=== PATIENT | female | born 1985 | race American Indian/Alaskan Native ===

== ENCOUNTER 2017-01-18 12:43 | Emergency (ER) | payer MEDICAID ==
--- NOTE | 2017-01-18 13:48 | OBHP ---
Datetime: 01/18/2017 13:42 IP Adm Impression: , intrauterine ; Intact Membranes IP Admit Plan: Discharge home Admit Comment, IP Provider: chief complaint- wet underwear; ?lekaing of fluid HPI 31 y/o at 36.6 wga withc /o episoe of feeling the underwear wet this morning.States that she woke up and noticed that she felt wet in her underwear and on the labia Deneis leaking of fluid after that course- acre with dr belle PMH denies PSH denies OBGYN HX Social hx denies tobacco,alcohol or illicit drug use Exam see exam section A/P 31 y/o at 36.6 wga with c/o feeling underwear wet.Membranes clinically intact.no abnorma l vaginal discharge noted.no active labor -discharge home -follow up with dr belle next week Pelvic Type - PN: Adequate Extremities - PN: Normal Abdomen - PN: Normal Back - PN: Normal Lungs - PN: Normal Heart - PN: Normal Neurologic - PN: Normal General - PN: Normal Membranes, Provider: Intact Contraction Comments Provider: occ Comments, ACOG Physical Exam: speculume xam vulva no lesions vagina no discharge or fluid; pooling, nitrazine and ferning neg uterus gravid'cervix closed adnexa no adnexal masses urethra no abnormal discharge or mass seen Gestation - Est Wks by US: 36.6 Pool Provider: Negative Nitrazine Provider: Negative Ferning Provider: Negative IP Hx Assessment: The History has been Reviewed and is Current EGA AdmitDate IP: 36.6 Vital Signs Provider: Reviewed; Within Normal Limits IP Chief Complaint: Suspected ruptured membranes FHR Category Provider Fetus A: Category I Dilatation, Provider: 0 Effacement, Provider: thick Station, Provider: high Genitourinary Exam: Normal DTRs - PN: Normal
[2017-01-18 18:15] VITALS: BP 100/63; PULSE 75; RESP 15; TEMP 98.5; O2SAT 98
== END 2017-01-18 14:05 | disposition home or self-care (01) ==
LOC: C.EROB 12:43
DX: O26.93 Pregnancy related conditions, unspecified, third trimester (principal); Z3A.36 36 weeks gestation of pregnancy

== ENCOUNTER 2017-02-02 08:22 | Inpatient (IN) | payer MEDICAID ==
[2017-02-02] MEDS ORDERED: Lactated Ringer's 1,000 ML IV SCH (10:45)
[2017-02-02] MEDS ORDERED: Nalbuphine 20 mg/ml Inj (1 ml) IVP PRN (10:45)
--- NOTE | 2017-02-02 10:55 | OBADHP ---
Datetime: 02/02/2017 10:50 Admit Comment, IP Provider: at 39weeks her for induction for r/o macrosomia, no ctxs, vb, lof,+ fm obhx 2 x pmh de med pnv all nkda psh de soch de ve /-3 a/p at 39weeks for induction f labor admit to l_d npo/ivf labs pain management cont diane and efm anticipate dr belle aware Pelvic Type - PN: Adequate Extremities - PN: Normal Abdomen - PN: Normal Back - PN: Normal Breast - PN: Normal Lungs - PN: Normal Heart - PN: Normal Thyroid - PN: Normal Neurologic - PN: Normal HEENT - PN: Normal General - PN: Normal FHR - Baseline A Provider: 130 Contraction Comments Provider: irrg IP Hx Assessment: The History has been Reviewed and is Current Vital Signs Provider: Reviewed; Within Normal Limits IP Chief Complaint: Scheduled induction of labor NICHD Variability Prov Fetus A: Moderate 6-25bpm Dilatation, Provider: 1 Effacement, Provider: 50 Station, Provider: -3 Genitourinary Exam: Normal DTRs - PN: Normal EGA AdmitDate IP: 39.0 IP Adm Impression: Term, intrauterine IP Admit Plan: Admit to unit; Initiate labor protocol Datetime: 01/18/2017 13:42 Membranes, Provider: Intact Comments, ACOG Physical Exam: speculume xam vulva no lesions vagina no discharge or fluid; pooling, nitrazine and ferning neg uterus gravid'cervix closed adnexa no adnexal masses urethra no abnormal discharge or mass seen Gestation - Est Wks by US: 36.6 Pool Provider: Negative Nitrazine Provider: Negative Ferning Provider: Negative FHR Category Provider Fetus A: Category I
[2017-02-02 11:27] LABS: BASO % 0.2 % (0.0-2.0); EOS # 0.1 K/uL (0.0-0.7); EOS % 1.3 % (0.0-4.0); HEMATOCRIT 36.7 % (34.0-47.0); LYMPH # 1.4 K/uL (1.0-4.3); LYMPH % 19.6 % (20.0-40.0); MEAN CORPUSCULAR HEMOGLOBIN 22.2 pg (27.0-31.0); MEAN CORPUSCULAR HGB CONC 30.8 g/dL (33.0-37.0); MONO # 0.5 K/uL (0.0-0.8); MONO % 7.4 % (0.0-10.0); NRBC % 0.2 % (0.0-2.0); RED CELL DISTRIBUTION WIDTH 29.4 % (11.5-14.5); WHITE BLOOD COUNT 7.4 K/uL (4.8-10.8)
[2017-02-02 11:30] LABS: URINE BILIRUBIN NEGATIVE (NEGATIVE); URINE BLOOD NEGATIVE (NEGATIVE); URINE COLOR Yellow (YELLOW); URINE GLUCOSE (UA) 1+ mg/dL (Normal); URINE KETONE TRACE mg/dL (NEGATIVE); URINE LEUKOCYTE ESTERASE TRACE Leu/uL (Negative); URINE PROTEIN 1+ mg/dL (NEGATIVE); URINE UROBILINOGEN NORMAL mg/dL (0.2-1.0); WBC URINE < 1 /hpf (0-5)
[2017-02-02 11:53] LABS: ALKALINE PHOSPHATASE 87 U/L (38-126); ALT/SGPT 31 U/L (9-52); AST/SGOT 21 U/L (14-36); BILIRUBIN,TOTAL 0.6 mg/dL (0.2-1.3); BLOOD UREA NITROGEN 6 mg/dL (7-17); CALCIUM 8.7 mg/dl (8.6-10.4); CARBON DIOXIDE 23 mmol/L (22-30); CHLORIDE 104 mmol/L (98-107); GFR AFRICAN-AMERICAN > 60; GLUCOSE,RANDOM 69 mg/dL (65-105); POTASSIUM 3.6 mmol/L (3.6-5.2); SODIUM 137 mmol/L (132-148); TOTAL PROTEIN 7.3 g/dL (6.3-8.3)
[2017-02-02] MEDS ORDERED: Bupivacaine 0.125%/FentaNYL 200 ML EPI ONE (12:00)
[2017-02-02] MEDS ORDERED: Oxytocin 30 UNIT 30 UNITS/500 ML BAG IV PRN (15:54)
--- NOTE | 2017-02-02 15:58 | OBPN ---
Datetime: 02/02/2017 15:55 IP Progress Impression: Normal progression of labor IP Procedures: Artificial ROM; Sterile Vag Exam FHR - Baseline A Provider: 120 IP Progress Note Comment: pt was examined at bed side ve 4/70/-2 arom clear start pitocin antipcipate Vital Signs Provider: Reviewed; Within Normal Limits NICHD Accel Fetus A IP Provider: [id number] FHR Category Provider Fetus A: Category I NICHD Variability Prov Fetus A: Moderate 6-25bpm Dilatation, Provider: 4 Effacement, Provider: 70 Station, Provider: -2 Datetime: 02/02/2017 10:50 Contraction Comments Provider: irrg Datetime: 01/18/2017 13:42 Pool Provider: Negative Nitrazine Provider: Negative Ferning Provider: Negative Membranes, Provider: Intact Gestation - Est Wks by US: 36.6
[2017-02-02] MEDS ORDERED: Oxycodone/Acetaminophen 5/325 mg Tab PO PRN ×2 (18:16)
[2017-02-02] MEDS: Benzocaine/Menthol 20%-0.5% Topical Spray (60 ml) TOP PRN (22:12)
[2017-02-03 08:26] LABS: HEMATOCRIT 35.2 % (34.0-47.0); MEAN CELL VOLUME 72.1 fL (81.0-99.0); MEAN CORPUSCULAR HEMOGLOBIN 22.5 pg (27.0-31.0); MEAN CORPUSCULAR HGB CONC 31.2 g/dL (33.0-37.0); MEAN PLATELET VOLUME 9.3 fL (7.2-11.7); RED CELL DISTRIBUTION WIDTH 29.9 % (11.5-14.5); WHITE BLOOD COUNT 10.5 K/uL (4.8-10.8)
[2017-02-03 16:19] VITALS: PULSE 77; O2SAT 98
[2017-02-04 08:24] VITALS: BP 94/54; RESP 18; TEMP 98.6
[2017-02-04] MEDS: Benzocaine/Menthol 20%-0.5% Topical Spray (60 ml) TOP PRN (09:53)
[2017-02-04] MEDS ORDERED: Influenza Vaccine 60 mcg/0.5 mL SYR (4YR UP) IM ONE (12:44)
--- NOTE | 2017-02-05 06:44 | PN ---
DATE: SUBJECTIVE: The patient has no complaints. OBJECTIVE: VITAL SIGNS: Stable. She is afebrile. ABDOMEN: Soft. Bowel sounds are normal. Fundus is firm. Lochia is scant. EXTREMITIES: Nontender. ASSESSMENT: Status post normal spontaneous vaginal delivery. PLAN: To discharge the patient. Follow up in the office in six weeks. Continue taking vitamins. Sylvester More MD
== END 2017-02-04 16:00 | disposition home or self-care (01) | DRG 373 ==
LOC: C.4D 08:22 → C.4M 19:30
PROVIDERS: ADMIT Obstetrics & Gynecology Reproductive Endocrinology; ATTEND Obstetrics & Gynecology Reproductive Endocrinology
PROC: 10E0XZZ Delivery of Products of Conception, External Approach (ICD-10-PCS; principal; 2017-02-02)
PROC: 10907ZC Drainage of Amniotic Fluid, Therapeutic from Products of Conception, Via Natural or Artificial Opening (ICD-10-PCS; 2017-02-02)
DX: O36.63X0 Maternal care for excessive fetal growth, third trimester, not applicable or unspecified (principal); Z37.0 Single live birth; Z3A.39 39 weeks gestation of pregnancy

== ENCOUNTER 2017-02-08 09:04 | Emergency (ER) | payer MEDICAID ==
[2017-02-08] MEDS ORDERED: Sodium Chloride 0.9% 1,000 ML IV ONE ×2 (09:32→11:21)
--- NOTE | 2017-02-08 09:41 | C.PDOC ---
History Of Present Illness 31 year old female presents to ED for evaluation of body aches, headache, lower abdominal pain, fever, and chills since 2:00am today. Notes taking Tylenol at 5: 30. Patient, , is currently , delivered here at [facility] on 02/02/17, had induction for possible macrosomia. Pt states she continues to have vaginal bleeding, but denies any abnormal vaginal discharge, vomiting, diarrhea, dysuria, cough, or shortness of breath. Time Seen by Provider: 02/08/17 09:25 Chief Complaint (Nursing): Abdominal Pain History Per: Patient History/Exam Limitations: no limitations Onset/Duration Of Symptoms: Hrs Current Symptoms Are (Timing): Still Present Location Of Pain/Discomfort: Suprapubic Radiation Of Pain To:: None Quality Of Discomfort: "Pain" Associated Symptoms: Fever, Chills. denies: Nausea, Vomiting, Diarrhea, Urinary Symptoms Exacerbating Factors: None Alleviating Factors: None Additional History Per: Patient Past Medical History Reviewed: Historical Data, Nursing Documentation, Vital Signs Vital Signs: Last Vital Signs Temp 98.2 F 02/08/17 13:30 Pulse 60 02/08/17 13:30 Resp 20 02/08/17 13:30 BP 110/50 L 02/08/17 13:30 Pulse Ox 98 02/08/17 14:26 - Medical History PMH: Anemia Denies: Depression, Diabetes, HTN, Chronic Kidney Disease - [facility] Procedures DELIVERY OF PRODUCTS OF CONCEPTION, EXTERNAL APPROACH (02/02/17) DRAINAGE OF AMNIOTIC FL, THERAP FROM POC, VIA OPENING (02/02/17) Family History: States: Hypertension - Social History Hx Alcohol Use: No Hx Substance Use: No - Immunization History Hx Tetanus Toxoid Vaccination: No Hx Influenza Vaccination: No Hx Pneumococcal Vaccination: No Review Of Systems Except As Marked, All Systems Reviewed And Found Negative. Constitutional: Positive for: Fever, Chills, Other (body aches) Cardiovascular: Negative for: Chest Pain Respiratory: Negative for: Cough, Shortness of Breath Gastrointestinal: Positive for: Abdominal Pain (lower). Negative for: Nausea, Vomiting, Diarrhea, Constipation Genitourinary: Positive for: Vaginal Bleeding. Negative for: Dysuria, Frequency , Hematuria, Vaginal Discharge Musculoskeletal: Negative for: Back Pain Neurological: Positive for: Headache. Negative for: Weakness, Numbness, Dizziness Physical Exam - Physical Exam Appears: Non-toxic, Other (uncomfortable) Skin: Normal Color, Warm (warm to touch), Dry Head: Atraumatic, Normacephalic Eye(s): bilateral: Normal Inspection Ear(s): Bilateral: Normal Nose: Normal Oral Mucosa: Moist Tongue: Normal Appearing Lips: Normal Appearing Throat: Erythema (mild), No Exudate, No Drooling Neck: Normal ROM, Supple, Other (no meningismus) Chest: Symmetrical Cardiovascular: Rhythm Regular (tachycardic), No Murmur Respiratory: Normal Breath Sounds, No Rales, No Rhonchi, No Wheezing Gastrointestinal/Abdominal: Soft, Tenderness (suprapubic), No Guarding, No Rebound, Other (redundant skin from ) Extremity: Normal ROM, No Deformity Neurological/Psych: Oriented x3, Normal Speech ED Course And Treatment - Laboratory Results Result Diagrams: 02/08/17 10:09 02/08/17 10:09 O2 Sat by Pulse Oximetry: 98 (RA) Pulse Ox Interpretation: Normal - Other Rad cxr X-Ray: Viewed By Me, Read By Radiologist Interpretation: Accession No. : [id number]. Patient Name / ID : MARGUREITE REYES / [id number]. Exam Date : 02/08/2017 09:50:07 ( Approved ). Study Comment : Sex / Age : F / 31Y. Creator : Kareem Lomas MD. Dictator : Kareem Lomas MD. Wire Welder : Lining Stuffer : Kareem Lomas MD. Approver2 : Report Date : 02/08/2017 10:53:05. My Comment : . PROCEDURE: CHEST RADIOGRAPH, 1 VIEW. HISTORY: fever. COMPARISON: No prior study for comparison. FINDINGS: LUNGS: No evidence of focal infiltrate or consolidation in the lungs. PLEURA: No pneumothorax or pleural fluid seen. CARDIOVASCULAR: Normal. OSSEOUS STRUCTURES: No significant abnormalities. VISUALIZED UPPER ABDOMEN: Normal. OTHER FINDINGS: None. IMPRESSION: No active disease. Progress Note: Blood work, UA, CXR, influenza AB ordered and reviewed. Patient was given Tylenol and IV fluids. On reassessment, patient still c/o pain - IV morphine given. Reevaluation Time: 13:10 Reassessment Condition: Improved (On reassessment, patient is resting comfortably, states she feels much better. On exam, abdomen is soft and nontender. Vitals have improved. Blood work shows no leukocytosis, bands or elevation of lactate. Patient given Rx for augmentin and strict instructions to follow up with her PMD in 1-2 days, and design engineer within 1 week. She understands she should return to ED immediately if symptoms worsen.) - Physician Consult Information Physician Contacted: Minesh Mccloud Outcome Of Conversation: Discussed patient with Dr. Mccloud. Since patient is , febrile and refusing pelvic exam/ultrasound, will give her augmentin to cover her for potential endometritis (Augmentin BID x 7 days). Patient appears significantly improved, and vitals also improved. Critical Care Time - Critical Care Note Total Time (in mins): 35 Documented critical care: time excludes all time spent performing seperately billable procedures. Disposition Counseled Patient/Family Regarding: Studies Performed, Diagnosis, Need For Followup, Rx Given - Disposition Referrals: Narinder Gauthier MD [Staff Provider] - Disposition: HOME/ ROUTINE Disposition Time: 13:10 Condition: STABLE Additional Instructions: FOLLOW UP WITH YOUR MANAGER FILE WITHIN 1 WEEK USE ANTIBIOTIC UNTIL FINISHED USE TYLENOL NEEDED FOR PAIN RETURN TO ER IF SYMPTOMS WORSEN Prescriptions: Amoxicillin/Clavulanate [Augmentin 875 MG-125 MG] 1 tab PO BID #14 tab Instructions: Fever in Adults (ED), Viral Syndrome (ED) Forms: [employer] (Mozambican) Print Language: LEBANESE - POA Present On Arrival: None - Clinical Impression Clinical Impression: Viral syndrome, fever - Scribe Statement The provider has reviewed the documentation as recorded by the Joanna Ly All medical record entries made by the Boniibbob were at my direction and personally dictated by me. I have reviewed the chart and agree that the record accurately reflects my personal performance of the history, physical exam, medical decision making, and the department course for this patient. I have also personally directed, reviewed, and agree with the discharge instructions and disposition.
[2017-02-08 10:06] LABS: RBC URINE 7 /hpf (0-3); URINE BACTERIA RARE (<OCC); URINE BILIRUBIN NEGATIVE (NEGATIVE); URINE BLOOD 2+ (NEGATIVE); URINE COLOR Yellow (YELLOW); URINE GLUCOSE (UA) NORMAL (Normal); URINE KETONE NEGATIVE (NEGATIVE); URINE LEUKOCYTE ESTERASE 1+ Leu/uL (Negative); URINE PROTEIN NEGATIVE (NEGATIVE); URINE UROBILINOGEN NORMAL mg/dL (0.2-1.0); WBC URINE 6 /hpf (0-5)
[2017-02-08 10:14] LABS: HEMATOCRIT 34.6 % (34.0-47.0); LYMPH # 0.8 K/uL (1.0-4.3); MEAN CORPUSCULAR HGB CONC 31.7 g/dL (33.0-37.0); MONO # 0.3 K/uL (0.0-0.8); NRBC % 0.6 % (0.0-2.0)
[2017-02-08 10:19] LABS: BASO % 0.6 % (0.0-2.0); EOS % 0.1 % (0.0-4.0); LYMPH % 13.3 % (20.0-40.0); MEAN CELL VOLUME 73.1 fL (81.0-99.0); MEAN CORPUSCULAR HEMOGLOBIN 23.1 pg (27.0-31.0); MEAN PLATELET VOLUME 9.1 fL (7.2-11.7); MONO % 4.5 % (0.0-10.0); RED CELL DISTRIBUTION WIDTH 28.7 % (11.5-14.5); WHITE BLOOD COUNT 5.9 K/uL (4.8-10.8)
[2017-02-08 10:26] LABS: VENOUS BLOOD GAS BASE EXCESS -1.1 mmol/L (0.0-2.0); VENOUS BLOOD GAS PCO2 33 mmHg (40-60); VENOUS BLOOD PH 7.44 (7.32-7.43)
--- NOTE | 2017-02-08 10:54 | RAD ---
PROCEDURE: CHEST RADIOGRAPH, 1 VIEW HISTORY: fever COMPARISON: No prior study for comparison FINDINGS: LUNGS: No evidence of focal infiltrate or consolidation in the lungs. PLEURA: No pneumothorax or pleural fluid seen. CARDIOVASCULAR: Normal. OSSEOUS STRUCTURES: No significant abnormalities. VISUALIZED UPPER ABDOMEN: Normal. OTHER FINDINGS: None. IMPRESSION: No active disease.
[2017-02-08 11:16] LABS: ALB/GLOB RATIO 1.4 (1.0-2.1); ALKALINE PHOSPHATASE 65 U/L (38-126); ALT/SGPT 87 U/L (9-52); AST/SGOT 40 U/L (14-36); BILIRUBIN,TOTAL 0.7 mg/dL (0.2-1.3); BLOOD UREA NITROGEN 11 mg/dL (7-17); CARBON DIOXIDE 24 mmol/L (22-30); CHLORIDE 105 mmol/L (98-107); GFR AFRICAN-AMERICAN > 60; GLUCOSE,RANDOM 92 mg/dL (65-105); POTASSIUM 3.3 mmol/L (3.6-5.2); SODIUM 137 mmol/L (132-148)
[2017-02-08] MEDS ORDERED: Morphine 4 MG/ML VIAL ONE (11:28)
[2017-02-08] MEDS ORDERED: Potassium Chloride 20 mEq ER Tab PO STA (11:54)
[2017-02-08] MEDS ORDERED: Potassium Chloride 20 mEq ER Tab PO ONE (12:06)
[2017-02-08] MEDS ORDERED: Amoxicillin-Clav 875-125 mg Tab PO STA (12:36)
[2017-02-08] MEDS ORDERED: Amoxicillin-Clav 875-125 mg Tab PO ONE (13:22)
[2017-02-08 13:31] VITALS: BP 110/50; PULSE 60; RESP 20; TEMP 98.2
[2017-02-08 14:26] VITALS: O2SAT 98
== END 2017-02-08 13:32 | disposition home or self-care (01) ==
LOC: C.ER 09:04
DX: B34.9 Viral infection, unspecified (principal); O86.4 Pyrexia of unknown origin following delivery
CPT/HCPCS: 71010; 80053; 81001; 82803; 85025; 87040; 87086; 87804; 96361; 96374; 99284; J2270; J7040